=== PATIENT | male | born 1960 | race Hispanic/Latino ===

== ENCOUNTER 2018-05-18 05:30 | Day surgery (SDC) | payer MEDICAID ==
[~2018-05-18] VITALS: Ht 157.5 cm; Wt 79.5 kg
[~2018-05-18 05:30] MED LIST: CITA-107 PO; ESOM40CA PO; FURO20TA4 PO; LACT10SO PO; LISI2.5T2 PO; PRAV10TA39 PO; PROP10TA10 PO; SPIR50TA5 PO
[2018-05-18] MEDS ORDERED: SODIUM CHLORIDE 0.9% 1000ML 1,000 ML IV ONE (05:48)
[2018-05-18 06:06] VITALS: BP 140/68
[2018-05-18] MEDS ORDERED: PROPOFOL 1000 MG/100 ML 100 ML IV ONE (06:48)
[2018-05-18] MEDS ORDERED: GLYCOPYRROLATE 0.2 MG/ML 5 ML VIAL ONE (06:49)
[2018-05-18 07:23] VITALS: BP 98/56
[2018-05-18 07:35] VITALS: BP 116/58
[2018-05-18 07:51] VITALS: BP 107/64
== END 2018-05-18 07:50 | disposition home or self-care (01) ==
LOC: ENDO 05:30 → DAH 05:30 → ENDO 07:50
PROVIDERS: ATTEND Internal Medicine
DX: D12.4 Benign neoplasm of descending colon (principal); D12.5 Benign neoplasm of sigmoid colon; K29.50 Unspecified chronic gastritis without bleeding; K57.30 Diverticulosis of large intestine without perforation or abscess without bleeding; K64.0 First degree hemorrhoids; K31.89 Other diseases of stomach and duodenum; K20.9 Esophagitis, unspecified; D50.9 Iron deficiency anemia, unspecified; K74.60 Unspecified cirrhosis of liver; F41.9 Anxiety disorder, unspecified; F32.9 Major depressive disorder, single episode, unspecified; Z79.899 Other long term (current) drug therapy
CPT/HCPCS: 43239; 45380; 45385; 88305; A4606; J2704; J3490; J7030

== ENCOUNTER → 2018-12-28 | Outpatient (CLI) | payer MEDICAID | END | disposition home or self-care (01) | LOC: RAH 07:55 | PROVIDERS: ATTEND Internal Medicine Gastroenterology | DX: K74.60 Unspecified cirrhosis of liver (principal) | CPT/HCPCS: 76700; 93975 ==

== ENCOUNTER → 2019-03-23 | Outpatient (CLI) | payer MEDICAID ==
[~2019-03-23] MED LIST changes: +IOHEXOL 350 MG/ML 100ML INFUS..BTL IV ONE
== END | disposition home or self-care (01) ==
LOC: RAH 08:46
PROVIDERS: ATTEND Internal Medicine Gastroenterology
DX: D73.2 Chronic congestive splenomegaly (principal); M48.061 Spinal stenosis, lumbar region without neurogenic claudication; M48.56XA Collapsed vertebra, not elsewhere classified, lumbar region, initial encounter for fracture; I81 Portal vein thrombosis
CPT/HCPCS: 74178; Q9967

== ENCOUNTER → 2019-06-06 | Outpatient (CLI) | payer MEDICAID ==
[~2019-06-06] MED LIST changes: -IOHEXOL 350 MG/ML 100ML INFUS..BTL IV ONE
== END | disposition home or self-care (01) ==
LOC: RAH 10:08
PROVIDERS: ATTEND Internal Medicine Gastroenterology
DX: R16.1 Splenomegaly, not elsewhere classified (principal); K70.30 Alcoholic cirrhosis of liver without ascites; K22.70 Barrett's esophagus without dysplasia; K20.9 Esophagitis, unspecified; K29.70 Gastritis, unspecified, without bleeding
CPT/HCPCS: 76700; 93975

== ENCOUNTER 2019-06-26 06:04 | Day surgery (SDC) | payer MEDICAID ==
[~2019-06-26] VITALS: Ht 154.9 cm; Wt 80.7 kg
[~2019-06-26 06:04] MED LIST changes: +PROPOFOL 10 MG/ML 20ML VIAL IV ONE; +SODIUM CHLORIDE 0.9% 1000ML 0 ML IV ONE; +SODIUM CHLORIDE 0.9% 1000ML 1,000 ML IV ONE
[2019-06-26 06:46] LABS: BASOPHILS % (AUTO) 0.9 % (0.0-5.0); EOSINOPHILS % (AUTO) 4.1 % (0.0-8.0); HEMATOCRIT 41.8 % (42-54); LYMPHOCYTES % (AUTO) 15.8 % (21.0-51.0); MEAN CORPUSCULAR HEMOGLOBIN 34.8 pg (27.0-33.0); MEAN CORPUSCULAR HGB CONC 34.6 g/dL (32.0-36.0); MEAN CORPUSCULAR VOLUME 100.8 fL (79-99); NEUTROPHILS % (AUTO) 59.2 % (40.0-77.0); PLATELET COUNT (AUTO) 86 K/uL (130-400); RED BLOOD CELL COUNT(AUTO) 4.15 MIL/uL (4.50-6.20); RED CELL DISTRIBUTION WIDTH 16.4 % (11.0-15.5)
[2019-06-26 06:51] VITALS: BP 113/82
[2019-06-26 06:55] LABS: INR 1.49 (0.85-1.15); PROTHROMBIN TIME 15.4 SEC (9.6-11.6)
[2019-06-26] MEDS ORDERED: PROPOFOL 10 MG/ML 20ML VIAL IV ONE ×2 (07:42→07:46)
[2019-06-26] MEDS ORDERED: LIDOCAINE HCL 2% 20ML ONE (07:42)
[2019-06-26 08:00] VITALS: BP 102/66
[2019-06-26 08:05] VITALS: BP 109/66
== END 2019-06-26 08:15 | disposition home or self-care (01) ==
LOC: DAH 06:04 → ENDO 06:04
PROVIDERS: ATTEND Internal Medicine Gastroenterology
DX: K22.70 Barrett's esophagus without dysplasia (principal); K29.50 Unspecified chronic gastritis without bleeding; K72.90 Hepatic failure, unspecified without coma; I85.10 Secondary esophageal varices without bleeding; K20.9 Esophagitis, unspecified; D64.9 Anemia, unspecified; K57.30 Diverticulosis of large intestine without perforation or abscess without bleeding; K70.30 Alcoholic cirrhosis of liver without ascites; F41.9 Anxiety disorder, unspecified; F32.9 Major depressive disorder, single episode, unspecified; I10 Essential (primary) hypertension; I25.10 Atherosclerotic heart disease of native coronary artery without angina pectoris; Z86.010 Personal history of colon polyps; Z79.899 Other long term (current) drug therapy
CPT/HCPCS: 36415; 43239; 85025; 85610; A4215; A4221; A4222; A4223; A4606; A4615; A4663; J2704 ×2; J3490; J7030

== ENCOUNTER → 2020-02-15 | Outpatient (CLI) | payer MEDICAID ==
[~2020-02-15] MED LIST changes: -PROPOFOL 10 MG/ML 20ML VIAL IV ONE; -SODIUM CHLORIDE 0.9% 1000ML 0 ML IV ONE; -SODIUM CHLORIDE 0.9% 1000ML 1,000 ML IV ONE
== END | disposition home or self-care (01) ==
LOC: RAH 10:11
PROVIDERS: ATTEND Internal Medicine Gastroenterology
DX: I82.890 Acute embolism and thrombosis of other specified veins (principal); I81 Portal vein thrombosis; K70.30 Alcoholic cirrhosis of liver without ascites; K76.6 Portal hypertension; K76.89 Other specified diseases of liver
CPT/HCPCS: 76700; 93975

== ENCOUNTER → 2021-10-28 | Outpatient (CLI) | payer MEDICAID ==
[~2021-10-28] MED LIST changes: -LACT10SO PO; +LACT10SO5 PO; +LISI2.5T13 PO; -LISI2.5T2 PO
== END | disposition home or self-care (01) ==
LOC: RAH 08:14
PROVIDERS: ATTEND Internal Medicine Gastroenterology
DX: K70.30 Alcoholic cirrhosis of liver without ascites (principal)
CPT/HCPCS: 76700; 93975